=== PATIENT | male | born 1990 | race Caucasian/White ===

== ENCOUNTER 2018-02-22 02:21 | Emergency (ER) | payer OTHER ==
[~2018-02-22] VITALS: Ht 177.8 cm; Wt 68.0 kg
[2018-02-22 02:21] VITALS: BP_SYST 134
--- NOTE | 2018-02-22 02:21 | NUR ---
Patient to [facility] for evaluation.
--- NOTE | 2018-02-22 02:25 | NUR ---
Patient to ER via [facility] for medical clearance and legal blood draw. Patient with laceration to the back of his head, and multiple abrasions to his body. Patient arrives in custody of [facility], ambulatory, in handcuffs. Patient denies pain at present, patient cursing at [facility] officers and staff. Awaiting evaluation by ER MD, will continue to observe and assess.
[2018-02-22] MEDS ORDERED: DIPH-TET-PERTUS Vaccine 0.5 ML VIAL (ADACEL) I.M. ONE (02:30)
--- NOTE | 2018-02-22 02:30 | NUR ---
Dr Bowden at bedside to evaluate patient.
--- NOTE | 2018-02-22 02:40 | NUR ---
Patient refused Tylenol, states that he does not need it, an dthat he is not having any pain at this time. Dr Bowden notified of patient's refusal of Tylenol.
[2018-02-22] MEDS ORDERED: BACITRACIN 1 GM OINT TP ONE ×2 (02:42→02:45)
[2018-02-22] MEDS: ACETAMINOPHEN 500 MG TABLET PO ONE ×2 (02:44→03:24)
--- NOTE | 2018-02-22 02:50 | NUR ---
Patient moved to bed 7 to have wounds cleansed.
--- NOTE | 2018-02-22 03:00 | NUR ---
cleansed wounds to bilateral elbows and arms, back, neck, face and back of head with normal saline and betadine. Pat dry. applied bacitracin to all abrasions and covered with non-adherent dressing. Pt tolerated well.
--- NOTE | 2018-02-22 03:19 | NUR ---
Written and verbal consent obtained from patient for blood alcohol, name and verified by patient. Disinfected patient's skin with Iodine that did not contain alcohol or other volatile organic compound. Collected the blood from the subject named by venipuncture, in the presence of Officer Rafy. Used a sterile, dry hypodermic needle and dry vacuum blood collection. The dry vacuum blood collection was supplied by the officer named above. Withdrew a specimen of blood from right AC of the subject named above. Inverted the blood tube several times to ensure that the preservative and anticoagulant were thoroughly mixed in the blood specimen. I initialed the blood tube label for identification. The labeled blood tube was handed directly to the Officer named above. The blood tube stopper remained in place while I had possession of the blood tube. The Officer placed tube into envelope and sealed it in my presence. Envelope initialed by myself and Officer named above. Patient tolerated well, bandage applied, and bleeding controlled.
--- NOTE | 2018-02-22 03:20 | NUR ---
Patient to radiology in stable condition via wheelchair.
--- NOTE | 2018-02-22 03:31 | NUR ---
Report to [facility] for continued care.
--- NOTE | 2018-02-22 04:26 | NUR ---
Patient does not wish to proceed with medical care recommended by Dr. Bowden. Patient given information related to possible complications, up to and including , which could occur as a result of leaving hospital at this time. Patient verbalizes understanding of risks involved leaving against medical advice. Patient has signed AMA form.
== END 2018-02-22 04:26 | disposition left against medical advice (07) ==
LOC: SED 02:21
DX: S02.40EA Zygomatic fracture, right side, initial encounter for closed fracture (principal); S02.40CA Maxillary fracture, right side, initial encounter for closed fracture; S02.31XA Fracture of orbital floor, right side, initial encounter for closed fracture; S02.2XXA Fracture of nasal bones, initial encounter for closed fracture; V49.49XA Driver injured in collision with other motor vehicles in traffic accident, initial encounter; Y93.89 Activity, other specified; Y92.89 Other specified places as the place of occurrence of the external cause; Y99.8 Other external cause status
CPT/HCPCS: 70450-TC; 70486-TC; 90715; 99284